=== PATIENT | female | born 1970 | race African-American/Black ===

== ENCOUNTER 2022-11-22 06:44 | Day surgery (SDC) | payer OTHER, MEDICAID, SELFPAY ==
[2022-11-22] MEDS: Lactated Ringers 1,000 ML 15 ML IV (07:15)
[2022-11-22 07:18] VITALS: BP 141/81; PULSE 64; RESP 16; TEMP 36.2; O2SAT 98; BMI 33.6
--- NOTE | 2022-11-22 07:26 | HP.PCM_ITS ---
[facility] - General General Date of Admission: 11/22/22 Date of Service: 11/22/22 Chief Complaint: Surveillance colonoscopy HPI Narrative JUDI MALONE, is a 52 F who presents today for screening colonoscopy. She had a colonoscopy back in 2019 and at that time she was discovered to have 2-3 adenomatous polyps. She comes back in for follow-up visit today. She does not have any abdominal pain. She denied any cramping. She denied of any chest pain or shortness of breath. Overall she is in fairly good health. [facility] Medical History Arthritis Back pain Elevated blood-pressure reading, without diagnosis of hypertension Family history of colon cancer History of irregular heartbeat History of uterine fibroid Post-menopausal Prediabetes Smoker Tobacco use Home Medications multivitamin 1 tab PO DAILY 10/29/22 [History Last Taken Unknown] Allergy/AdvReac Type Severity Reaction Status Date / Time morphine Allergy Hives Verified 11/16/22 15:21 Family History (Updated 10/29/22 @ 16:21 by Sara Puri) Mother Arthritis Aunt Colon cancer Surgical History History of colonoscopy History of total hysterectomy Hx of umbilical hernia repair Social History (Updated 10/29/22 @ 16:23 by Sara Puri) current occupational status: employed Smoking Status: Current every day smoker tobacco type: cigarettes ROS Review of Systems ROS Unobtainable: other Constitutional Constitutional: Denies fatigue, fever(s), poor appetite, weight gain or weight loss ENT HEENT: Denies mouth lesions Cardiovascular Cardiovascular: Denies abdominal bloating, abdominal edema or abdominal pain Respiratory/Chest Respiratory/Chest: Denies change in mental status, change in phlegm color, chest congestion or chest tightness Gastrointestinal Gastrointestinal: Denies belching, bloating, change in bowel habits, change in stool character, chewing difficulty, coffee ground emesis, constipation, cramping, diarrhea, dyspepsia, dysphagia, early satiety, excessive flatus, fecal incontinence, heartburn, hematemesis, hematochezia, hemorrhoids, loose stools, melena, nausea, odynophagia, rectal bleeding, tenesmus, vomiting or weight changes Genitourinary Genitourinary: Denies abdominal discomfort, burning urination or itching Musculoskeletal Musculoskeletal: Reports as per HPI; Denies muscle weakness or myalgias Integumentary Integumentary: Denies jaundice Neurologic Neurologic: Denies lack of coordination or weakness Psychiatric Psychiatric: Denies confusion, depression, memory loss, mood swings, paranoia or suicidal ideation Endocrine Endocrinology: Denies systems reviewed and no addt'l complaints, except as documented Hematologic/Lymphatic Hematologic/Lymphatic: Denies anemia, easy bleeding, easy bruising or lymphadenopathy Allergic/Immunologic Allergic/Immunologic: Denies systems reviewed and no addt'l complaints, except as documented Vital Signs Vital Signs Vital Signs: 11/22/22 07:18 11/22/22 07:18 Temperature 97.1 F L Temperature Source Temporal Pulse Rate 64 Respiratory Rate 16 Respiratory Pattern Normal Blood Pressure 141/81 H Blood Pressure Mean 101 Blood Pressure Source Monitor Blood Pressure Position Semi-Fowlers Blood Pressure Location Right Arm Pulse Ox 98 Oxygen Delivery Method Room Air Weight Weight: 195 lb 15.855 oz Body Mass Index (BMI) 33.6 Physical Exam Const alert General Appearance: cooperative Orientation / Consciousness: oriented to person HEENT hearing grossly normal bilaterally Head and Scalp: normal to inspection Face and Sinus: face symmetric Nose: external nose normal Mouth: oral and palatal mucosa normal Eyes conjunctivae normal General Eye: normal appearance of both eyes Neck full ROM General: normal visual inspection Lymph Lymphatic: no lymphadenopathy noted Chest inspection of chest normal and palpation of chest normal Chest: symmetrical chest wall rise Resp normal respiratory effort Effort and Inspection: able to speak in complete sentences Cardio regular rate GI non-distended Percussion: normal to percussion Rectal Exam: deferred Neuro Speech: speech normal Gait (Neuro): normal gait Assessment & Plan Assessment/Plan (1) Encounter for screening for malignant neoplasm of colon: PLAN: She was explained alternatives, risk, benefits including not withstanding bleeding, infection, sepsis, perforation, need for emergent surgery and . She will have an ASA of 2.
--- NOTE | 2022-11-22 07:45 | COLBX_PTH ---
PATIENT: JUDI MALONE LOC: EN U#:[id number] AGE/SX: 52/F ROOM: RE11/22/[address]: Dr. Darrion Contreras DO : 1970 BED: DIS: 11/22/2022 SPEC #: [id number] RECD: 11/22/22 09:37 STATUS: LI HANS #: [id number] SHAKEEL: 11/22/22 07:[address]: Darrion Contreras DEPT: SURGICAL PATHOLOGY RECD BY: Surekha Johnston ENTERED: 11/22/22 11:58 SP TYPE: COLON BX OTHR DR: Sarahy [facility] Tissues: Sigmoid colon biopsy Procedures: Surgery Specimen Level IV HEADER OPERATION: Colonoscopy ? open access (MAC), polypectomy PRE-OP DIAGNOSIS: Screening TISSUE SUBMITTED: Sigmoid polyp MICROSCOPIC DIAGNOSIS Sigmoid polyp, polypectomy: Hyperplastic polyp. SJ:nirav 11/23/2022 MICROSCOPIC DESCRIPTION Slides are reviewed. GROSS DESCRIPTION Received in fixative is one container labeled with the patient's name and designated sigmoid polyp. The specimen consists of one irregular fragment of light valdez soft tissue that measures 0.4 x 0.3 x 0.2 cm. The specimen is totally submitted in one cassette. / SJ:nirav 11/22/2022 TC:1 CPT: 52332
[2022-11-22 08:00] VITALS: BP 104/71; BP 141/81; PULSE 67; RESP 18; TEMP 36.2; O2SAT 98
--- NOTE | 2022-11-22 08:02 | OP.COLON_ITS ---
Patient Name: Mirlande Hernandez Procedure Date: 11/22/2022 7:27 AM Date of : 1970 Age: 52 Procedure: Colonoscopy Indications: Follow-up for history of adenomatous polyps in the colon Providers: Darrion Contreras DO Medicines: Monitored Anesthesia Care Patient Profile: This is a 52 year old female. Refer to note in patient chart for documentation of history and physical. Last Colonoscopy: 3 years ago. Complications: No immediate complications. Procedure: Pre-Anesthesia Assessment: - Prior to the procedure, a History and Physical was performed, and patient medications and allergies were reviewed. The risks and benefits of the procedure and the sedation options and risks were discussed with the patient. All questions were answered and informed consent was obtained. Patient identification and proposed procedure were verified by the physician in the pre-procedure area. Mental Status Examination: alert and oriented. Airway Examination: normal oropharyngeal airway and neck mobility. Respiratory Examination: clear to auscultation. CV Examination: normal. Prophylactic Antibiotics: The patient does not require prophylactic antibiotics. Prior Anticoagulants: The patient has taken no previous anticoagulant or antiplatelet agents. ASA Grade Assessment: II - A patient with mild systemic disease. After reviewing the risks and benefits, the patient was deemed in satisfactory condition to undergo the procedure. The anesthesia plan was to use monitored anesthesia care (MAC). Immediately prior to administration of medications, the patient was re-assessed for adequacy to receive sedatives. The heart rate, respiratory rate, oxygen saturations, blood pressure, adequacy of pulmonary ventilation, and response to care were monitored throughout the procedure. The physical status of the patient was re-assessed after the procedure. After I obtained informed consent, the scope was passed under direct vision. Throughout the procedure, the patient's blood pressure, pulse, and oxygen saturations were monitored continuously. The pediatric colonoscope was introduced through the anus and advanced to the cecum, identified by appendiceal orifice and ileocecal valve. The colonoscopy was performed without difficulty. The patient tolerated the procedure well. The quality of the bowel preparation was good. Scope In: 7:42:22 AM Scope Withdrawal Time 0 hours 10 minutes 41 seconds Scope Out: 7:56:03 AM Total Procedure Duration Time 0 hours 13 minutes 41 seconds Findings: The perianal and digital rectal examinations were normal. A 6 mm polyp was found in the sigmoid colon. The polyp was sessile. The polyp was removed with a hot snare. Resection and retrieval were complete. Verification of patient identification for the specimen was done. Estimated blood loss was minimal. A few small-mouthed diverticula were found in the sigmoid colon. Impression: - One 6 mm polyp in the sigmoid colon, removed with a hot snare. Resected and retrieved. - Diverticulosis in the sigmoid colon. Recommendation: - Discharge patient to home. - Resume previous diet. - Continue present medications. - Await pathology results. - Repeat colonoscopy in 5 years for screening purposes. Procedure Code(s): --- Professional --- 84383, Colonoscopy, flexible; with removal of tumor(s), polyp(s), or other lesion(s) by snare technique CPT copyright 2017 [employer]. All rights reserved. The codes documented in this report are preliminary and upon data coder operator review may be revised to meet current compliance requirements. Darrion Contreras DO 11/22/2022 8:02:28 AM This report has been signed electronically. Number of Addenda: 0 Note Initiated On: 11/22/2022 7:27 AM
--- NOTE | 2022-11-22 08:02 | OP.CCLET_ITS ---
11/22/2022 Sarahy Padilla [facility] Re : Colonoscopy procedure for Mirlande Hernandez [facility] This procedure was performed on Tuesday, November 22, 2022. My impressions and recommendations are as follows: Impressions : - One 6 mm polyp in the sigmoid colon, removed with a hot snare. Resected and retrieved. - Diverticulosis in the sigmoid colon. Recommendations : - Discharge patient to home. - Resume previous diet. - Continue present medications. - Await pathology results. - Repeat colonoscopy in 5 years for screening purposes. My findings are described in the full procedure note, which is enclosed. If I can be of further assistance, please feel free to contact me at . Sincerely, Darrion Contreras, 11/22/2022 8:02:28 AM This report has been signed electronically.
[2022-11-22 08:05] VITALS: BP 107/73; BP 141/81; PULSE 67; RESP 16; O2SAT 99
[2022-11-22 08:10] VITALS: BP 109/65; BP 141/81; PULSE 64; RESP 16; O2SAT 99
[2022-11-22 08:16] VITALS: BP 112/68; BP 141/81; PULSE 65; RESP 16; TEMP 37; O2SAT 100
[2022-11-22 08:39] VITALS: BP 141/81
== END 2022-11-22 08:51 | disposition home or self-care (01) ==
LOC: EN 06:51 → AC 06:57
PROVIDERS: Visit Provider Internal Medicine Gastroenterology
PROC: 0DJD8ZZ Inspection of Lower Intestinal Tract, Via Natural or Artificial Opening Endoscopic (ICD-10-PCS; CPT 45378; principal; 2022-11-22 07:40)
DX: Z12.11 Encounter for screening for malignant neoplasm of colon (principal); K57.30 Diverticulosis of large intestine without perforation or abscess without bleeding; K63.5 Polyp of colon; F17.210 Nicotine dependence, cigarettes, uncomplicated; Z86.010 Personal history of colon polyps
CPT/HCPCS: 45385; 88305; J7120; J2405